=== PATIENT | female | born 1995 | race Hispanic/Latino ===

== ENCOUNTER 2021-05-12 17:33 | Emergency (ER) | payer OTHER ==
[~2021-05-12] VITALS: Ht 152.4 cm; Wt 75.7 kg
[2021-05-12 17:34] VITALS: BP 119/99
== END 2021-05-12 18:20 | disposition left against medical advice (07) ==
LOC: EDH 17:33
DX: R05 Cough (principal); R06.02 Shortness of breath; Z53.21 Procedure and treatment not carried out due to patient leaving prior to being seen by health care provider